=== PATIENT | female | born 1990 | race Caucasian/White ===

== ENCOUNTER → 2017-11-12 | Outpatient (CLI) | payer OTHER ==
[~2017-11-12] MED LIST: ACIPHEX20 MG PO; BACTRIM DS 8001 TAB PO; CLARITIN 1010 MG/TAB PO; CRYSELLE 30 MCG1 TAB PO; FERROUS GL325 MG/TAB PO; MOTRIN 600600 MG/TAB PO; NORCO 325 MG-51 TAB PO; PREDNISONE20 MG PO; PRENATAL1 TA7 PO
== END ==
LOC: COL.RAD 10:50
DX: R13.10 Dysphagia, unspecified (principal)
CPT/HCPCS: Q9967

== ENCOUNTER → 2018-03-02 | Outpatient (CLI) | payer OTHER | LOC: COL.RAD 11:01 | DX: R10.11 Right upper quadrant pain (principal); R11.0 Nausea ==

== ENCOUNTER 2019-04-12 08:25 | Emergency (ER) | payer OTHER ==
[~2019-04-12] VITALS: Ht 160 cm; Wt 72.7 kg
[2019-04-12 09:34] LABS: BASO % 0.3 % (0.0-2.0); EOS % 0.3 % (0-4.0); GRAN % 81.7 % (42.2-75.2); HEMOGLOBIN 10.2 g/dl (12.5-16.0); LYMPH # 0.6 (1.2-3.4); LYMPH % 7.5 % (20.0-51.0); MEAN CELL VOLUME 82 fl (80.0-100.0); MEAN CORPUSCULAR HEMOGLOBIN 27 pg (27.0-31.0); MEAN CORPUSCULAR HGB CONC 33 g/dl (33.0-37.0); MEAN PLATELET VOLUME 10.5 fl (7.4-10.4); MONO # 0.7 (0.1-0.6); MONO % 9.1 % (1.7-9.3); PLATELET COUNT 195 K/mm3 (130-400); RED BLOOD COUNT 3.74 M/mm3 (4.10-5.30); REDCELL DISTRIBUTION WIDTH-CV 11.8 % (11.5-14.5)
[2019-04-12 09:35] LABS: HEMATOCRIT 30.8 % (37.0-47.0)
[2019-04-12 09:41] LABS: BILIRUBIN,TOTAL 0.3 mg/dL (0.0-1.0); CREATININE, serum 0.42 (0.52-1.25); POTASSIUM 3.6 mmol/L (3.4-5.0); TOTAL PROTEIN 7.6 gm/dL (6.4-8.2)
[2019-04-12] MEDS ORDERED: TAMIFLU 75MG75 MG PO (09:41)
[2019-04-12 10:37] LABS: COLLECTION METHOD CLEAN CATCH
[2019-04-12 10:47] LABS: MUCOUS Present /lpf; PH 7 (5-8); URINE APPEARANCE Clear; URINE BACTERIA None Seen /hpf; URINE BILIRUBIN Negative (NEGATIVE); URINE BLOOD Negative (NEGATIVE); URINE COLOR Yellow; URINE GLUCOSE Negative (NEGATIVE); URINE KETONE 1+ (NEGATIVE); URINE LEUKOCYTE ESTERASE Negative (NEGATIVE); URINE NITRATE Negative (NEGATIVE); URINE PROTEIN(semi-quant) Negative (NEGATIVE); URINE RBC 0-2 /hpf; URINE UROBILINOGEN Negative (NEGATIVE)
[2019-04-12 10:56] VITALS: TEMP 98.2
[2019-04-12 12:14] VITALS: BP 100/54; PULSE 117
== END 2019-04-12 12:14 | disposition home or self-care (01) ==
LOC: COL.ER 08:25
PROVIDERS: Physician Assistant
DX: J10.1 Influenza due to other identified influenza virus with other respiratory manifestations (principal)
CPT/HCPCS: J2405; J7030

== ENCOUNTER 2019-07-21 07:21 | Inpatient (IN) | payer OTHER ==
[~2019-07-21] VITALS: Ht 160 cm; Wt 80.9 kg
[2019-07-21] VITALS (33 sets, daily range): BP systolic 108–144; BP diastolic 55–88; PULSE 66–106; TEMP 97.5–98.3
[~2019-07-21 07:21] MED LIST changes: +INDERAL 10MG10 MG PO; +LEXAPRO 10MG10 MG PO; +PROTONIX 40MG T40 MG PO; +TAMIFLU 75MG75 MG PO
--- NOTE | 2019-07-21 07:30 | NUR ---
Pt arrives on unit ambulatory with spouse for IOL. G2L1 at 39.1 weeks gestation. Changed into clean gown. EFM and toco applied. VSS. Denies regular ctx, LOF, vaginal bleeding and reports GFM. IV started in LF. Labs drawn. LR infusing. Admission assessment completed. Consents signed. Pt updated on POC. Safety reviewed. Bed locked in low position. Call light within reach. No questions or concerns at this time.
[2019-07-21 08:17] LABS: BASO % 0.6 % (0.0-2.0); EOS # 0.1 (0.0-0.7); EOS % 1.5 % (0-4.0); GRAN # 4.1 (1.4-6.5); GRAN % 56.6 % (42.2-75.2); HEMOGLOBIN 10.4 g/dl (12.5-16.0); LYMPH # 2.5 (1.2-3.4); LYMPH % 34.5 % (20.0-51.0); MEAN CELL VOLUME 76 fl (80.0-100.0); MEAN CORPUSCULAR HEMOGLOBIN 25 pg (27.0-31.0); MEAN CORPUSCULAR HGB CONC 32 g/dl (33.0-37.0); MEAN PLATELET VOLUME 12.2 fl (7.4-10.4); MONO # 0.4 (0.1-0.6); MONO % 6.1 % (1.7-9.3); PLATELET COUNT 234 K/mm3 (130-400); RED BLOOD COUNT 4.24 M/mm3 (4.10-5.30); REDCELL DISTRIBUTION WIDTH-CV 14.6 % (11.5-14.5)
[2019-07-21 08:24] LABS: HEMATOCRIT 32.4 % (37.0-47.0)
--- NOTE | 2019-07-21 13:33 | NUR ---
Provider on unit for delivery. 1338-Pt coached on pushing efforts. Begins pushing with provider. SVE of viable male attended by Dr. Elizalde. Cord clamped x 2 and cut from umbilicus. Infant dried and placed on mothers abdomen. Care of infant to Ivory Glasgow RN. 1342- of placenta. Fundus firm at umbilicus. Bleeding WNL. Pitocin bolus infusing per protocol. Second degree laceration repaired per provider. Pericare performed. Ice pack applied. Bed locked in low position. Call light within reach. No questions or concerns at this time.
[2019-07-22 06:55] VITALS: BP 117/77; PULSE 77; TEMP 98
[2019-07-22 12:30] VITALS: BP 117/75; PULSE 73; TEMP 97.5
== END 2019-07-22 16:30 | disposition home or self-care (01) | DRG 805 ==
LOC: OB 07:21 → LDR 07:21 → OB 16:00
PROVIDERS: ADMIT Student in an Organized Health Care Education/Training Program
PROC: 10E0XZZ Delivery of Products of Conception, External Approach (ICD-10-PCS; principal; 2019-07-21)
PROC: 0KQM0ZZ Repair Perineum Muscle, Open Approach (ICD-10-PCS; 2019-07-21)
PROC: 10907ZC Drainage of Amniotic Fluid, Therapeutic from Products of Conception, Via Natural or Artificial Opening (ICD-10-PCS; 2019-07-21)
PROC: 3E033VJ Introduction of Other Hormone into Peripheral Vein, Percutaneous Approach (ICD-10-PCS; 2019-07-21)
DX: O14.13 Severe pre-eclampsia, third trimester (principal); O99.42 Diseases of the circulatory system complicating childbirth; Z37.0 Single live birth; I34.1 Nonrheumatic mitral (valve) prolapse; O70.1 Second degree perineal laceration during delivery; O99.343 Other mental disorders complicating pregnancy, third trimester; F41.9 Anxiety disorder, unspecified; O99.013 Anemia complicating pregnancy, third trimester; D64.9 Anemia, unspecified; O99.613 Diseases of the digestive system complicating pregnancy, third trimester; K21.9 Gastro-esophageal reflux disease without esophagitis; Z3A.39 39 weeks gestation of pregnancy
CPT/HCPCS: J2590; J7120

== ENCOUNTER 2021-07-15 12:42 | Emergency (ER) | payer OTHER ==
[~2021-07-15] VITALS: Ht 160 cm; Wt 74.1 kg
[2021-07-15 13:17] LABS: BASO % 0.1 % (0.0-2.0); EOS # 0.1 K/mm3 (0.0-0.7); EOS % 1.9 % (0.0-4.0); GRAN # 4.5 K/mm3 (1.4-6.5); GRAN % 66.1 % (42.2-75.2); HEMOGLOBIN 10.6 g/dl (12.5-16.0); LYMPH # 1.6 K/mm3 (1.2-3.4); MEAN CELL VOLUME 83 fl (80.0-100.0); MEAN CORPUSCULAR HEMOGLOBIN 28 pg (27-31); MEAN CORPUSCULAR HGB CONC 34 g/dl (33.0-37.0); MEAN PLATELET VOLUME 10.1 fl (7.4-10.4); MONO # 0.5 K/mm3 (0.1-0.6); MONO % 7.6 % (1.7-9.3); PLATELET COUNT 227 K/mm3 (130-400); RED BLOOD COUNT 3.73 M/mm3 (4.10-5.30); REDCELL DISTRIBUTION WIDTH-CV 13.5 % (11.5-14.5)
[2021-07-15 13:18] LABS: HEMATOCRIT 30.8 % (37.0-47.0)
[2021-07-15 13:34] LABS: ALANINE AMINOTRANSFERASE 15 U/L (0-55); ALBUMIN 3.1 gm/dL (3.5-5.0); ALKALINE PHOSPHATASE 61 U/L (40-150); ANION GAP 11 mmol/L (7-16); AST,SGOT 19 U/L (5-34); BILIRUBIN,TOTAL 0.3 mg/dL (0.2-1.2); BLOOD UREA NITROGEN 6 mg/dL (7-19); CALCIUM 8.5 mg/dL (8.4-10.2); CARBON DIOXIDE 19 mmol/L (22-29); CHLORIDE 107 mmol/L (98-107); CREATININE, serum 0.63 mg/dL (0.57-1.11); GLUCOSE 93 mg/dL (70-99); POTASSIUM 3.8 mmol/L (3.5-4.5); SODIUM 137 mmol/L (136-145); TOTAL PROTEIN 7.1 gm/dL (6.2-8.1)
[2021-07-15 13:40] LABS: TROPONIN-I < 0.010 ng/mL (0.00-0.033)
[2021-07-15 14:47] VITALS: BP 111/84; PULSE 87
== END 2021-07-15 14:47 | disposition home or self-care (01) ==
LOC: COL.ER 12:42
PROVIDERS: Emergency Medicine
DX: O98.512 Other viral diseases complicating pregnancy, second trimester (principal); U07.1 COVID-19; Z87.59 Personal history of other complications of pregnancy, childbirth and the puerperium; Z79.82 Long term (current) use of aspirin; Z3A.17 17 weeks gestation of pregnancy